=== PATIENT | female | born 1995 | race Hispanic/Latino ===

== ENCOUNTER 2018-06-07 04:16 | Inpatient (IN) | payer OTHER ==
[2018-06-07] MEDS ORDERED: METHYLERGONOVINE 0.2MG/ML AMP IM PRN (04:41)
[2018-06-07] MEDS ORDERED: BUTORPHANOL 1 MG/ML INJ IV PRN (04:41)
[2018-06-07] MEDS ORDERED: MEPERIDINE HCL 25 MG/0.5 ML IV PRN (04:41)
[2018-06-07] MEDS ORDERED: PROMETHAZINE 25 MG/ML VIAL IM PRN (04:41)
[2018-06-07] MEDS ORDERED: CARBOPROST TROME 250 MCG/ML IM PRN (04:41)
[2018-06-07] MEDS ORDERED: Ringers Lactate 1,000 ML IV PRN (04:41)
[2018-06-07] MEDS ORDERED: OXYTOCIN/LR 20 UNIT/1,000 ML BAG IV SCH ×2 (05:00→10:00)
[2018-06-07] MEDS ORDERED: Ringers Lactate 1,000 ML IV SCH (05:00)
[2018-06-07 05:42] LABS: RPR Titer ND
[2018-06-07 05:44] VITALS: BMI 31.8
[2018-06-07 05:45] LABS: Urine Appearance CLOUDY; Urine Bilirubin NEGATIVE (NEG); Urine Blood 1+ (NEG); Urine Color YELLOW; Urine Glucose NEGATIVE (NEG); Urine Protein TRACE (NEG); Urine Specific Gravity >=1.030 (1.005-1.030)
[2018-06-07 05:49] LABS: Absolute Lymphocytes (CBC) 2.1 K/uL (0.7-4.9); Absolute Monocytes 0.7 K/uL (0.1-1.3); Absolute Neutrophil 6.5 K/uL (1.8-8.0); Basophils % 0.5 % (0-1.3); Eosinophils % 1.3 % (0-4.4); Hematocrit 32.9 % (36.0-45.0); Lymphocytes % 22.6 % (15.3-44.8); MCH 28.1 pg (27.0-35.0); MCV 81.9 fL (80-100); MPV 8.7 fL (7.6-11.3); RBC Red Blood Cell Count 4.02 M/uL (3.86-4.86)
[2018-06-07 05:50] LABS: Urine Microscopic Reflex ORDER UMIC
[2018-06-07 05:54] LABS: Urine Bacteria >50 /HPF (<20); Urine Culture Reflex Order REFLEXED
[2018-06-07 05:55] LABS: Urine RBC <5 /HPF (NONE SEEN)
[2018-06-07] MEDS ORDERED: LIDOCAINE 2% INJ, 20 mL 0 ML ONE (07:20)
--- NOTE | 2018-06-07 08:43 | PREOPHP ---
Date of Admission: 06/07/2018 Juany Ladd is a 23-year-old 3, para 1, 39 weeks today. Rh positive. Immune to Rubella. Negative strep screen. Comes in for elective induction. The patient is 4-1/2 cm on admission. Rupture of membranes, clear fluid. Labor talk given. Anticipate delivery later today. She has a history of mild hypotonus . Methergine ordered to be in the room at the time of delivery if needed. ADDY/MOMO Voice ID: [id number] MTDD
[2018-06-07] MEDS ORDERED: DOCUSATE NA/SENNA CONC 1 TAB PO PRN (09:29)
[2018-06-07] MEDS ORDERED: Oxycodone HCl/Acetaminophen 1 TAB TAB PO PRN ×2 (09:29)
[2018-06-07] MEDS ORDERED: BISACODYL 10 MG RECTAL SUPP RECT PRN (09:29)
[2018-06-07] MEDS ORDERED: DIPHENHYDRAMINE 25 MG TAB/CAP PO PRN (09:29)
[2018-06-07] MEDS ORDERED: ACETAMINOPHEN 500 MG TAB PO PRN (09:29)
--- NOTE | 2018-06-07 11:29 | OP ---
Surgeon: Hari Simons MD A 23-year-old 3, para 1, at 39 weeks, 4.5 cm on admission. Rupture of membranes, clear fluid . The patient went into rapid labor pattern, 9 cm. Says she felt the urge to push and then had prec ipitous, but controlled delivery of an estimated 7-pound plus female. Apgars 9 and 9. No episiotomy . No laceration. Nuchal cord x1 loosely. Schultze delivery of the placenta. Less than 200 cc bloo d loss. The patient tolerated all procedures well. No lacerations worthy of suturing. Final Diagnoses: Term intrauterine , vaginal delivery. ADDY/MOMO Voice ID: [id number] Report ID: [id number]
[2018-06-07] MEDS: IBUPROFEN 200 MG TAB PO PRN (19:15)
[2018-06-08] MEDS: IBUPROFEN 200 MG TAB PO PRN (04:28)
--- NOTE | 2018-06-08 08:02 | DS ---
Hospital Course: A 23-year-old, 3, para 1, AB 1, at 39 weeks gestation, 4.5 cm on admission, rupture of membranes. The patient went to a very active rapid labor pattern. Delivered precipitous ly but controlled of an estimated 7-pound plus female; Apgars 9 and 9. No episiotomy. No laceration . Schultze delivery of the placenta was inspected and noted to be intact and normal. Less than 200 cc blood loss. Rh positive, immune to Rubella, negative beta strep screen. is afebrile, ambulating, and voiding. Lochia is normal. She has had her Tdap immunization. Will be dismissed to return to my office in 6 weeks for followup, to report any temperature elevation of 100 degrees or g reater, severe pain, heavy bleeding, or any other type of abnormalities. Dismissed with tramadol, on ly 10 pills; may decide to take Motrin instead; she knows the tramadol goes to the breast milk. The patient is requesting tubal sterilization. She has signed her permit, but because we cannot do it he re she will contact [facility] within the next few days and see them in 1 month and then probabl y have a tubal somewhere between 6 and 8 weeks after her delivery. She was aware of this during the . Final Diagnoses: 1.Term intrauterine , 39 weeks. 2.Vaginal delivery. 3.Sterilization pending at outside institution. ADDY/MOMO Voice ID: [id number] Report ID: [id number]
[2018-06-08 12:43] VITALS: BP 117/73; TEMP 98.2
[2018-06-08 23:24] LABS: RPR (Rapid Plasma Reagin) NON-REACT (NON-REACT)
[2018-06-10 09:28] LABS: HBsAG Nonreactive
== END 2018-06-08 14:15 | disposition home or self-care (01) | DRG 775 ==
LOC: 2ND-WC 04:16
PROVIDERS: ADMIT Specialist; ATTEND Specialist
PROC: 10E0XZZ Delivery of Products of Conception, External Approach (ICD-10-PCS; principal; 2018-06-07)
PROC: 10907ZC Drainage of Amniotic Fluid, Therapeutic from Products of Conception, Via Natural or Artificial Opening (ICD-10-PCS; 2018-06-07)
DX: O69.81X0 Labor and delivery complicated by cord around neck, without compression, not applicable or unspecified (principal); O62.3 Precipitate labor; Z3A.39 39 weeks gestation of pregnancy; Z37.0 Single live birth
CPT/HCPCS: 36415; 81003; 81015; 85025; 86592; 86901; 87086; 87088; 87340; J2210; J2590

== ENCOUNTER 2019-04-11 20:24 | Emergency (ER) | payer OTHER ==
[2019-04-11 20:47] LABS: Urine Blood 3+ (NEG); Urine Glucose NEGATIVE (NEG); Urine Protein 3+ (NEG); Urine Specific Gravity 1.015 (1.005-1.030); Urine pH 7.5 (5.0-7.0)
--- NOTE | 2019-04-11 20:59 | EDPHYS ---
Physician Documentation [facility] Name: Juany Farrar Age: 24 yrs Sex: Female : 1995 Arrival Date: 04/11/2019 Time: 20:29 Bed 20 Private MD: ED Physician Erica Aguilera HPI: 04/11 20:56 This 24 yrs old Female presents to ER via Ambulatory with complaints of ma2 Vaginal Pain. 20:56 Onset: The symptoms/episode began/occurred gradually, 2 day(s) ago. Associated signs ma2 and symptoms: Pertinent negatives: diarrhea, dysuria, hematuria, nausea. Severity of symptoms: At their worst the symptoms were moderate, in the emergency department the symptoms are unchanged. The patient is sexually active. The patient has experienced similar episodes in the past. dysurea. 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 - Social history:: Smoking status: Patient/guardian denies using tobacco, Patient/guardian denies using alcohol, street drugs, The patient lives with family. - Ebola Screening: : Patient negative for fever greater than or equal to 101.5 degrees Fahrenheit, and additional compatible Ebola Virus Disease symptoms Patient denies exposure to infectious person Patient denies travel to an Ebola-affected area in the 21 days before illness onset. - Family history:: not pertinent. ROS: 20:56 Other ma2 20:56 Constitutional: Negative for fever, chills, and weight loss, Cardiovascular: Negative for chest pain, palpitations, and edema, Respiratory: Negative for shortness of breath, cough, wheezing, and pleuritic chest pain, Abdomen/GI: Negative for abdominal pain, nausea, diarrhea, and constipation, MS/Extremity: Negative for injury and deformity. 20:56 : Positive for urinary symptoms, Negative for flank pain, missed period. 20:56 All other systems are negative. Exam: 20:56 Constitutional: This is a well developed, well nourished patient who is awake, alert, ma2 and in no acute distress. Chest/axilla: Normal chest wall appearance and motion. Nontender with no deformity. No lesions are appreciated. Cardiovascular: Regular rate and rhythm with a normal S1 and S2. No gallops, murmurs, or rubs. Normal PMI, no JVD. No pulse deficits. Respiratory: Lungs have equal breath sounds bilaterally, clear to auscultation and percussion. No rales, rhonchi or wheezes noted. No increased work of breathing, no retractions or nasal flaring. Abdomen/GI: Soft, non-tender, with normal bowel sounds. No distension or tympany. No guarding or rebound. No evidence of tenderness throughout. Female : Normal external genitalia. MS/ Extremity: Pulses equal, no cyanosis. Neurovascular intact. Full, normal range of motion. 20:56 : ptn declined pelvic exam. Vital Signs: 20:40 BP 119 / 62; Pulse 92; Resp 18; Temp 98.2(O); Pulse Ox 99% on R/A; Weight 77.11 kg (R); ae4 Pain 8/10; 21:15 BP 115 / 67; Pulse 90; Resp 16 S; Temp 98.2(O); Pulse Ox 99% on R/A; cc3 MDM: 20:30 Patient medically screened. ma2 20:56 Differential diagnosis: urinary tract infection, vaginosis. Data reviewed: vital signs, ma2 nurses notes. Counseling: I had a detailed discussion with the patient and/or guardian regarding: the historical points, exam findings, and any diagnostic results supporting the discharge/admit diagnosis, the presence of at least one elevated blood pressure reading (>120/80) during this emergency department visit, the need for outpatient follow up. Response to treatment: the patient's symptoms have markedly improved after treatment. 04/11 20:41 Order name: Urine Dipstick--Ancillary (enter results) [facility] 04/11 20:41 Order name: Urine --Ancillary (enter results) [facility] 04/11 20:43 Order name: Urine Dipstick-Ancillary [facility] 04/11 20:43 Order name: Urine --Ancillary [facility] 04/11 20:55 Order name: Urine Culture ae4 Administered Medications: 21:20 Drug: Tylenol #3 (300 mg-30 mg) 1 tablet Route: PO; cc3 21:25 Follow up: Response: No adverse reaction; Pain is decreased cc3 Disposition: 04/11/19 20:59 Discharged to Home. Impression: Cystitis. - Condition is Stable. - Discharge Instructions: Urinary Tract Infection, Adult, [id number]. - Prescriptions for Tylenol- Codeine #3 300-30 mg Oral Tablet - take 2 tablet by ORAL route every 6 hours As needed; 6 tablet. Bactrim 400- 80 mg Oral Tablet - take 2 tablets by ORAL route 2 times per day; 20 tablet. - Medication Reconciliation Form, Thank You Letter, Antibiotic Education, Prescription Opioid Use form. - Follow up: Private Physician; When: Tomorrow; Reason: Continuance of care. Signatures: Dispatcher [employer] EDMS Erica Aguilera MD MD ma2 Anamaria Matson cc3 Matthew Peña RN RN ae4 Corrections: (The following items were deleted from the chart) 21:28 20:59 04/11/2019 20:59 Discharged to Home. Impression: Cystitis. Condition is Stable. cc3 Forms are Medication Reconciliation Form, Thank You Letter, Antibiotic Education, Prescription Opioid Use. Follow up: Private Physician; When: Tomorrow; Reason: Continuance of care. ma2
--- NOTE | 2019-04-11 20:59 | ER ---
Nurse's Notes [facility] Name: Juany Farrar Age: 24 yrs Sex: Female : 1995 Arrival Date: 04/11/2019 Time: 20:29 Bed 20 Private MD: Diagnosis: Cystitis Presentation: 04/11 20:43 Presenting complaint: Patient states: Patient states he has had urinary frequency, ae4 urgency, spotting, vulvar pain, and pain with urination since April 06, 2019. Patient started taking "Azos" and applied Monistat to the vaginal area. Transition of care: patient was not received from another setting of care. Onset of symptoms was April 06, 2019. Risk Assessment: Do you want to hurt yourself or someone else? Patient reports no desire to harm self or others. Initial Sepsis Screen: Does the patient meet any 2 criteria? No. Patient's initial sepsis screen is negative. Does the patient have a suspected source of infection? Yes: Dysuria/Frequency/Urgency/UTI. Care prior to arrival: Patient started staking OTC "Azos" and applied Monistat cream to the vaginal area. 20:43 Acuity: VALENTINO 3 ae4 20:43 Method Of Arrival: Ambulatory ae4 Triage Assessment: 20:48 General: Appears uncomfortable, Behavior is calm, cooperative, appropriate for age. ae4 General: Reports chills for fatigue for 0-12 hours. Pain: Complains of pain in meatus, vaginal opening, right labia minora, left labia minora and upper labia Pain currently is 8 out of 10 on a pain scale. EENT: No signs and/or symptoms were reported regarding the EENT system. Neuro: Level of Consciousness is awake, alert, obeys commands, Oriented to person, place, time, situation, Appropriate for age. Cardiovascular: Patient's skin is warm and dry. Respiratory: Airway is patent Respiratory effort is even, unlabored, Respiratory pattern is regular, symmetrical. GI: Reports nausea. : Reports burning with urination, urinary frequency. Derm: Skin is normal. Derm: Reports. Musculoskeletal: Reports Fatigue. REPEAT CHIEF: 20:55 LMP 03/20/2019 ae4 Historical: - Allergies: 20:48 No Known Allergies; ae4 - Home Meds: 20:48 Nexplanon implanted control [Active]; ae4 - PMHx: 20:56 None; ae4 - PSHx: 20:48 None; ae4 - Immunization history:: Adult Immunizations up to date. - Social history:: Smoking status: Patient/guardian denies using tobacco, Patient/guardian denies using alcohol, street drugs, The patient lives with family. - Ebola Screening: : Patient negative for fever greater than or equal to 101.5 degrees Fahrenheit, and additional compatible Ebola Virus Disease symptoms Patient denies exposure to infectious person Patient denies travel to an Ebola-affected area in the 21 days before illness onset. - Family history:: not pertinent. Screenin:55 Abuse screen: Denies threats or abuse. Nutritional screening: No deficits noted. ae4 Tuberculosis screening: No symptoms or risk factors identified. Fall Risk None identified. Assessment: 21:25 Reassessment: Patient appears in no apparent distress at this time. Patient and/or cc3 family updated on plan of care and expected duration. Pain level reassessed. Patient is alert, oriented x 3, equal unlabored respirations, skin warm/dry/pink. Dr. Aguilera discharged the patient home with prescription given. No IV cannula in situ. Patient left ER vitally stable and ambulatory with her mother. Patient denies pain at this time. Patient states feeling better. Patient states symptoms have improved. Vital Signs: 20:40 BP 119 / 62; Pulse 92; Resp 18; Temp 98.2(O); Pulse Ox 99% on R/A; Weight 77.11 kg (R); ae4 Pain 8/10; 21:15 BP 115 / 67; Pulse 90; Resp 16 S; Temp 98.2(O); Pulse Ox 99% on R/A; cc3 ED Course: 20:29 Patient arrived in ED. ss4 20:30 Matthew Peña, JENNA is Primary Nurse. ae4 20:30 Erica Aguilera MD is Attending Physician. ma2 20:46 Triage completed. ae4 20:52 Arm band placed on left wrist. ae4 20:53 Placed in gown. Bed in low position. Call light in reach. Side rails up X 1. Pulse ox ae4 on. NIBP on. Warm blanket given. 21:19 Anamaria Matson is Primary Nurse. cc3 21:25 No provider procedures requiring assistance completed. Patient did not have IV access cc3 during this emergency room visit. Administered Medications: 21:20 Drug: Tylenol #3 (300 mg-30 mg) 1 tablet Route: PO; cc3 21:25 Follow up: Response: No adverse reaction; Pain is decreased cc3 Outcome: 20:59 Discharge ordered by . anastasiya 21:25 Discharged to home ambulatory, with family. cc3 21:25 Condition: stable 21:25 Discharge instructions given to patient, Instructed on discharge instructions, follow up and referral plans. medication usage, Demonstrated understanding of instructions, follow-up care, medications, Prescriptions given X 2. 21:28 Patient left the ED. cc3 Addendum: 04/14/2019 07:54 Addendum: Culture Results: Positive urine culture. No further action required. Bacteria i w sensitive to prescribed antibiotic. Signatures: Yelena Wall, RN RN iw Erica Aguilera MD MD ma2 Anamaria Matson cc3 Valerie Greer 4 Matthew Peña RN RN ae4
[2019-04-11] MEDS ORDERED: CODEINE 30MG/APAP 300MG TAB ONE (21:38)
[2019-04-11 21:42] VITALS: BP 119/62; TEMP 98.2; O2SAT 99
== END 2019-04-11 21:28 | disposition home or self-care (01) ==
LOC: ER 20:24
DX: N30.90 Cystitis, unspecified without hematuria (principal)
CPT/HCPCS: 81003; 81025; 87077; 87086; 87088; 87186; 99283

== ENCOUNTER 2019-08-11 20:33 | Emergency (ER) | payer OTHER ==
--- NOTE | 2019-08-11 22:36 | EDPHYS ---
Physician Documentation [facility] Name: Juany Farrar Age: 24 yrs Sex: Female : 1995 Arrival Date: 08/11/2019 Time: 20:36 Bed 19 Private MD: ED Physician John Mccollum HPI: 08/12 00:05 This 24 yrs old Female presents to ER via Ambulatory with complaints of Ankle snw Injury, Ankle Swelling. 00:05 The patient presents with an injury, pain, that is acute, swelling, tenderness. The snw complaints affect the right ankle. Onset: The symptoms/episode began/occurred suddenly, 1 week(s) ago, and became persistent. Context: The problem was sustained outdoors, resulted from the patient falling, The mechanism of injury is unknown. The patient can partially bear weight on the affected extremity. Associated signs and symptoms: Pertinent positives: swelling, of the right ankle. Severity of symptoms: At their worst the symptoms were moderate. It is unknown whether or not the patient has had similar symptoms in the past. The patient has not recently seen a physician. 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 - Social history:: Smoking status: Patient/guardian denies using tobacco. - Ebola Screening: : Patient denies travel to an Ebola-affected area in the 21 days before illness onset. ROS: 08/12 00:04 Constitutional: Negative for fever, chills, and weight loss, Eyes: Negative for injury, snw pain, redness, and discharge, ENT: Negative for injury, pain, and discharge, Neck: Negative for injury, pain, and swelling, Cardiovascular: Negative for chest pain, palpitations, and edema, Respiratory: Negative for shortness of breath, cough, wheezing, and pleuritic chest pain, Abdomen/GI: Negative for abdominal pain, nausea, vomiting, diarrhea, and constipation, Back: Negative for injury and pain, : Negative for injury, bleeding, discharge, and swelling, Skin: Negative for injury, rash, and discoloration, Neuro: Negative for headache, weakness, numbness, tingling, and seizure, Psych: Negative for depression, anxiety, suicide ideation, homicidal ideation, and hallucinations. MS/extremity: Positive for injury or acute deformity, contusion, decreased range of motion, pain, swelling, tenderness, of the right ankle. Exam: 00:02 Constitutional: This is a well developed, well nourished patient who is awake, alert, snw and in no acute distress. Head/Face: Normocephalic, atraumatic. Eyes: Pupils equal round and reactive to light, extra-ocular motions intact. Lids and lashes normal. Conjunctiva and sclera are non-icteric and not injected. Cornea within normal limits. Periorbital areas with no swelling, redness, or edema. ENT: Nares patent. No nasal discharge, no septal abnormalities noted. Tympanic membranes are normal and external auditory canals are clear. Oropharynx with no redness, swelling, or masses, exudates, or evidence of obstruction, uvula midline. Mucous membranes moist. Neck: Trachea midline, no thyromegaly or masses palpated, and no cervical lymphadenopathy. Supple, full range of motion without nuchal rigidity, or vertebral point tenderness. No Meningismus. Chest/axilla: Normal chest wall appearance and motion. Nontender with no deformity. No lesions are appreciated. Cardiovascular: Regular rate and rhythm with a normal S1 and S2. No gallops, murmurs, or rubs. Normal PMI, no JVD. No pulse deficits. Respiratory: Lungs have equal breath sounds bilaterally, clear to auscultation and percussion. No rales, rhonchi or wheezes noted. No increased work of breathing, no retractions or nasal flaring. Abdomen/GI: Soft, non-tender, with normal bowel sounds. No distension or tympany. No guarding or rebound. No evidence of tenderness throughout. Back: No spinal tenderness. No costovertebral tenderness. Full range of motion. Skin: Warm, dry with normal turgor. Normal color with no rashes, no lesions, and no evidence of cellulitis. Neuro: Awake and alert, GCS 15, oriented to person, place, time, and situation. Cranial nerves II-XII grossly intact. Motor strength 5/5 in all extremities. Sensory grossly intact. Cerebellar exam normal. Normal gait. Psych: Awake, alert, with orientation to person, place and time. Behavior, mood, and affect are within normal limits. 00:02 Musculoskeletal/extremity: Extremities: grossly normal except: noted in the right ankle: pain, swelling, tenderness, ROM: limited active range of motion due to pain, in the right ankle, Circulation is intact in all extremities. Sensation intact. Vital Signs: 08/11 20:49 BP 118 / 78; Pulse 80; Resp 16; Temp 97.6; Pulse Ox 100% on R/A; Weight 79.83 kg (R); aj1 Height 5 ft. 6 in. (167.64 cm) (R); Pain 7/10; 22:50 BP 110 / 78; Pulse 80; Resp 18; Pulse Ox 100% ; ea 20:49 Body Mass Index 28.41 (79.83 kg, 167.64 cm) MDM: 22:27 Patient medically screened. snw 08/12 00:04 Data reviewed: vital signs, nurses notes. Data interpreted: Pulse oximetry: on room air snw is 100 %. Interpretation: normal. Counseling: I had a detailed discussion with the patient and/or guardian regarding: the historical points, exam findings, and any diagnostic results supporting the discharge/admit diagnosis, radiology results, the need for outpatient follow up, to return to the emergency department if symptoms worsen or persist or if there are any questions or concerns that arise at home. Special discussion: Based on the history and exam findings, there is no indication for further emergent testing or inpatient evaluation. I discussed with the patient/guardian the need to see the orthopedic surgeon for further evaluation of the symptoms. 08/11 20:51 Order name: Ankle Left 3 View XRAY aj1 08/11 22:29 Order name: Walking boot; Complete Time: 22:45 snw Administered Medications: 08/11 22:45 Not Given (Other Intervention Used): [place] 5 mg-325 mg 1 tabs PO once; RASS on ADMIN: ea Combtv4, Very Agttd3, Agttd2, Rstlss1, AlertClm0, Drwsy-1, Lt Sdtn-2, Mod Sdtn-3, Dp Sdtn-4, UnArsble-5 22:45 Drug: Motrin 400 mg Route: PO; ea 22:58 Follow up: Response: No adverse reaction ea 22:57 Drug: TORadol 30 mg Route: IM; Site: right deltoid; ea 23:05 Follow up: Response: Medication administered at discharge. ea Disposition: 08/12 12:45 Co-signature as Attending Physician, John Mccollum MD I agree with the assessment and carol plan of care. Disposition: 08/11/19 22:35 Discharged to Home. Impression: Sprain of ankle. - Condition is Stable. - Discharge Instructions: Elastic Bandage and RICE, Ankle Sprain, Ankle Pain, Cryotherapy, Heat Therapy, Walking Boot, Heartbeats (How the Heart Works). - Prescriptions for Mobic 7.5 mg Oral Tablet - take 1 tablet by ORAL route once daily take with food; 20 tablet. orphenadrine citrate 100 mg Oral Tablet Sustained Release - take 1 tablet by ORAL route 2 times per day As needed; 20 tablet. - Work release form, Medication Reconciliation Form, Thank You Letter, Antibiotic Education, Prescription Opioid Use form. - Follow up: Jaun Sanabria MD; When: 2 - 3 days; Reason: Recheck today's complaints, Continuance of care, Re-evaluation by your physician. Signatures: Dispatcher [employer] Hyun Garcia RN RN aj1 John Mccollum MD MD cha Therrien, Shelly, DIRECTOR E LEARNING-C DIRECTOR E LEARNING-Csnw Vickie Hayes RN RN ea Corrections: (The following items were deleted from the chart) 08/11 23:04 22:35 08/11/2019 22:35 Discharged to Home. Impression: Sprain of ankle. Condition is ea Stable. Forms are Medication Reconciliation Form, Thank You Letter, Antibiotic Education, Prescription Opioid Use. Follow up: Dr. Jaun Sanabria; When: 2 - 3 days; Reason: Recheck today's complaints, Continuance of care, Re-evaluation by your physician. snw
--- NOTE | 2019-08-11 22:36 | ER ---
Nurse's Notes [facility] Name: Juany Farrar Age: 24 yrs Sex: Female : 1995 Arrival Date: 08/11/2019 Time: 20:36 Bed 19 Private MD: Diagnosis: Sprain of ankle Presentation: 08/11 20:47 Presenting complaint: Patient states: "last Thursday I fell and I hurt my ankle, the aj1 pain was so bad it was worse than when I had my kids, its been a week and it still hurts and the swelling hasn't gone down." Reports pain to the right ankle. Transition of care: patient was not received from another setting of care. Onset of symptoms was July 2019. Risk Assessment: Do you want to hurt yourself or someone else? Patient reports no desire to harm self or others. Initial Sepsis Screen: Does the patient meet any 2 criteria? No. Patient's initial sepsis screen is negative. Does the patient have a suspected source of infection? No. Patient's initial sepsis screen is negative. Care prior to arrival: None. 20:47 Method Of Arrival: Ambulatory aj1 20:47 Acuity: VALENTINO 4 aj1 Triage Assessment: 20:49 General: Appears in no apparent distress. uncomfortable, Behavior is calm, cooperative, aj1 appropriate for age. Pain: Complains of pain in right ankle Pain currently is 7 out of 10 on a pain scale. Neuro: Level of Consciousness is awake, alert, obeys commands. Cardiovascular: Patient's skin is warm and dry. Respiratory: Airway is patent Respiratory effort is even, unlabored, Respiratory pattern is regular, symmetrical. Musculoskeletal: Range of motion: limited in right ankle. 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 - Social history:: Smoking status: Patient/guardian denies using tobacco. - Ebola Screening: : Patient denies travel to an Ebola-affected area in the 21 days before illness onset. Screenin:20 Abuse screen: Denies threats or abuse. Nutritional screening: No deficits noted. ea Tuberculosis screening: No symptoms or risk factors identified. Fall Risk None identified. Assessment: 22:19 General: Appears uncomfortable, Behavior is calm, cooperative, appropriate for age. ea Pain: Complains of pain in right ankle. Neuro: Level of Consciousness is awake, alert, obeys commands, Oriented to person, place, time, situation. Cardiovascular: Patient's skin is warm and dry. Respiratory: Airway is patent Respiratory effort is even, unlabored, Respiratory pattern is regular, symmetrical. Derm: Skin is pink, warm \\T\\ dry. Musculoskeletal: Swelling present in right ankle. 22:58 Reassessment: Patient and/or family updated on plan of care and expected duration. Pain ea level reassessed. Patient is alert, oriented x 3, equal unlabored respirations, skin warm/dry/pink. Discharge instructions given to patient, verbalized the understanding of instruction. Pt left ED ambulatory tolerating well. Vital Signs: 20:49 BP 118 / 78; Pulse 80; Resp 16; Temp 97.6; Pulse Ox 100% on R/A; Weight 79.83 kg (R); aj1 Height 5 ft. 6 in. (167.64 cm) (R); Pain 7/10; 22:50 BP 110 / 78; Pulse 80; Resp 18; Pulse Ox 100% ; ea 20:49 Body Mass Index 28.41 (79.83 kg, 167.64 cm) aj1 ED Course: 20:36 Patient arrived in ED. cl3 20:38 [facility] snw 20:38 John Mccollum MD is Attending Physician. snw 20:49 Triage completed. aj1 20:49 Arm band placed on Patient placed in waiting room, Patient notified of wait time. aj1 21:30 Ankle Left 3 View XRAY In Process Unspecified. EDMS 22:19 Vickie Hayes, JENNA is Primary Nurse. ea 22:21 Patient has correct armband on for positive identification. Bed in low position. Call ea light in reach. Side rails up X 1. 22:33 Jaun Sanabria MD is Referral Physician. snw 22:46 No provider procedures requiring assistance completed. Patient did not have IV access ea during this emergency room visit. ortho boot to right foot. Administered Medications: 22:45 Not Given (Other Intervention Used): Ruth 5 mg-325 mg 1 tabs PO once; RASS on ADMIN: ea Combtv4, Very Agttd3, Agttd2, Rstlss1, AlertClm0, Drwsy-1, Lt Sdtn-2, Mod Sdtn-3, Dp Sdtn-4, UnArsble-5 22:45 Drug: Motrin 400 mg Route: PO; ea 22:58 Follow up: Response: No adverse reaction ea 22:57 Drug: TORadol 30 mg Route: IM; Site: right deltoid; ea 23:05 Follow up: Response: Medication administered at discharge. ea Outcome: 22:35 Discharge ordered by . michele 22:58 Discharged to home ambulatory. ea 22:58 Condition: stable 22:58 Discharge instructions given to patient, Instructed on discharge instructions, follow up and referral plans. medication usage, Demonstrated understanding of instructions, follow-up care, medications, Prescriptions given X 2. 23:04 Patient left the ED. ea Signatures: Dispatcher [employer] Hyun Garcia, RN RN aj1 Donna Person, DYE WEIGHER-C DYE WEIGHER-Csnw Vickie Hayes, RN Eveline Sanchez ea cl3
[2019-08-11] MEDS ORDERED: HYDROCODONE/APAP 5/325 MG TAB ONE (22:37)
[2019-08-11] MEDS ORDERED: IBUPROFEN 400 MG TAB ONE (22:38)
[2019-08-11] MEDS ORDERED: KETOROLAC 30 MG/ML INJ ONE (22:56)
[2019-08-11 23:52] VITALS: BP 118/78; TEMP 97.6; O2SAT 100
--- NOTE | 2019-08-12 07:45 | RAD REPORT ---
EXAM DESCRIPTION: RAD - Ankle Left 3 View -08/11/2019 9:29 pm CLINICAL HISTORY: Left ankle pain status post injury FINDINGS: No fracture or dislocation is seen. Marked lateral soft tissue swelling
== END 2019-08-11 23:04 | disposition home or self-care (01) ==
LOC: ER 20:33
DX: S93.401A Sprain of unspecified ligament of right ankle, initial encounter (principal); W19.XXXA Unspecified fall, initial encounter; Y93.9 Activity, unspecified
CPT/HCPCS: 96372; 99284

== ENCOUNTER 2021-08-04 11:17 | Inpatient (IN) | payer OTHER, SELFPAY ==
--- NOTE | 2021-08-04 12:04 | ER ---
Nurse's Notes [facility] Name: Juany Farrar Age: 26 yrs Sex: Female : 1995 Arrival Date: 08/04/2021 Time: 11:20 Bed 24 Private MD: Diagnosis: Coronavirus infection, unspecified;Pneumonia due to SARS-associated coronavirus;Hypoxemia;Fever, unspecified Presentation: 08/04 11:29 Chief complaint: Patient states: Covid-19 positive, c/o SOB. Coronavirus screen: Client aa5 presents with at least one sign or symptom that may indicate coronavirus-19. Client reports previous positive COVID test result. Ebola Screen: Patient negative for fever greater than or equal to 101.5 degrees Fahrenheit, and additional compatible Ebola Virus Disease symptoms. Initial Sepsis Screen: Does the patient meet any 2 criteria? HR > 90 bpm. Does the patient have a suspected source of infection? Yes:. Risk Assessment: Do you want to hurt yourself or someone else? Patient reports no desire to harm self or others. Onset of symptoms was July 29, 2021. 11:29 Method Of Arrival: Ambulatory aa5 11:29 Acuity: VALENTINO 3 aa5 Triage Assessment: 14:06 General: Appears uncomfortable. General: Behavior is calm, cooperative. Respiratory: tc5 Reports shortness of breath cough that is productive, pt states she has small amt sputum, white-yellowish sputum. Onset: The symptoms/episode began/occurred gradually, the patient has moderate shortness of breath. 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 - Social history:: Smoking status: Patient denies any tobacco usage or history of. Screenin:03 Abuse screen: Denies threats or abuse. Nutritional screening: No deficits noted. tc5 Tuberculosis screening: No symptoms or risk factors identified. Fall Risk None identified. Assessment: 12:17 Pain: Quality of pain is described as. tc5 14:04 Cardiovascular: Rhythm is sinus tachycardia. Respiratory: Airway. Respiratory: tc5 Respiratory: Respiratory effort is even, labored, Breath sounds are clear bilaterally. Vital Signs: 11:29 BP 123 / 74; Pulse 136; Resp 20 S; Temp 100.8(O); Pulse Ox 93% on R/A; Weight 81.65 kg aa5 (R); Height 5 ft. 6 in. (167.64 cm) (R); 14:08 BP 101 / 65; Pulse 125; Resp 28; Temp 99.3; Pulse Ox 98% ; Weight 81.65 kg; Height 5 tc5 ft. 6 in. (167.64 cm) (R); 14:08 Body Mass Index 29.05 (81.65 kg, 167.64 cm) tc5 ED Course: 11:20 Patient arrived in ED. am2 11:25 John Mccollum MD is Attending Physician. carol 11:29 Arm band placed on. aa5 11:30 Triage completed. aa5 12:00 Micki Aaron MD is Hospitalizing Provider. carol 12:24 Chest Single View XRAY In Process Unspecified. EDMS 12:45 CBC with Diff Sent. tc5 13:01 CT Chest For PE Angio In Process Unspecified. EDMS 14:09 Inserted saline lock: 20 gauge in right antecubital area, using aseptic technique. tc5 14:10 No provider procedures requiring assistance completed. tc5 14:12 Patient has correct armband on for positive identification. tc5 Administered Medications: 12:43 Drug: Montelukast 10 mg Route: PO; tc5 12:44 Drug: Zithromax (azithromycin) 500 mg Route: IVPB; Infused Over: 1 hrs; Site: right tc5 antecubital; 12:44 Drug: Pepcid (famotidine) 40 mg Route: PO; tc5 12:44 Drug: SOLU-Medrol (methylPrednisoLONE) 125 mg Route: IVP; Site: right antecubital; tc5 12:44 Drug: predniSONE 60 mg Route: PO; tc5 12:45 Drug: NS 0.9% 500 ml Route: IV; Rate: bolus; Site: right antecubital; tc5 12:45 Drug: Tylenol 1000 mg Route: PO; tc5 13:26 Drug: Rocephin (cefTRIAXone) 1 grams Route: IV; Rate: per protocol; Site: right tc5 antecubital; 13:26 Drug: Aspirin Chewable Tablet 324 mg Route: PO; tc5 14:03 Not Given (dr. rodrigues): NS 0.9% 1000 ml IV at 125 ml/hr continuous tc5 Outcome: 12:03 Decision to Hospitalize by Provider. caorl 14:10 Admitted to Tele tc5 14:10 Condition: stable tc5 14:10 Instructed on the need for admit, Demonstrated understanding of 20:33 Patient left the ED. wg Signatures: Dispatcher [employer] EDJohn Foreman MD MD cha Calderon, Audri, RN RN aa5 Khadijah Riddle Liam, Viji Mcconnell RN RN tc5
--- NOTE | 2021-08-04 12:04 | EDPHYS ---
Physician Documentation [facility] Name: Juany Farrar Age: 26 yrs Sex: Female : 1995 Arrival Date: 08/04/2021 Time: 11:20 Bed 24 Private MD: ED Physician John Mccollum HPI: 08/04 11:53 This 26 yrs old Female presents to ER via Ambulatory with complaints of carol Breathing Difficulty, covid+. 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 - Social history:: Smoking status: Patient denies any tobacco usage or history of. ROS: 11:55 Constitutional: Negative for fever, chills, and weight loss, Eyes: Negative for injury, carol pain, redness, and discharge, ENT: Negative for injury, pain, and discharge, Neck: Negative for injury, pain, and swelling, Abdomen/GI: Negative for abdominal pain, nausea, vomiting, diarrhea, and constipation, Back: Negative for injury and pain, : Negative for injury, bleeding, discharge, and swelling, MS/Extremity: Negative for injury and deformity, Skin: Negative for injury, rash, and discoloration, Neuro: Negative for headache, weakness, numbness, tingling, and seizure, Psych: Negative for depression, anxiety, suicide ideation, homicidal ideation, and hallucinations, Allergy/Immunology: Negative for hives, rash, and allergies, Endocrine: Negative for neck swelling, polydipsia, polyuria, polyphagia, and marked weight changes. 11:55 Cardiovascular: Positive for chest pain, palpitations. 11:55 Respiratory: Positive for cough, with no reported sputum, shortness of breath, at rest. Exam: 11:55 Constitutional: This is a well developed, well nourished patient who is awake, alert, carol and in no acute distress. Head/Face: Normocephalic, atraumatic. Eyes: Pupils equal round and reactive to light, extra-ocular motions intact. Lids and lashes normal. Conjunctiva and sclera are non-icteric and not injected. Cornea within normal limits. Periorbital areas with no swelling, redness, or edema. ENT: Nares patent. No nasal discharge, no septal abnormalities noted. Tympanic membranes are normal and external auditory canals are clear. Oropharynx with no redness, swelling, or masses, exudates, or evidence of obstruction, uvula midline. Mucous membranes moist. Neck: Trachea midline, no thyromegaly or masses palpated, and no cervical lymphadenopathy. Supple, full range of motion without nuchal rigidity, or vertebral point tenderness. No Meningismus. Chest/axilla: Normal chest wall appearance and motion. Nontender with no deformity. No lesions are appreciated. Abdomen/GI: Soft, non-tender, with normal bowel sounds. No distension or tympany. No guarding or rebound. No evidence of tenderness throughout. Back: No spinal tenderness. No costovertebral tenderness. Full range of motion. Skin: Warm, dry with normal turgor. Normal color with no rashes, no lesions, and no evidence of cellulitis. MS/ Extremity: Pulses equal, no cyanosis. Neurovascular intact. Full, normal range of motion. Neuro: Awake and alert, GCS 15, oriented to person, place, time, and situation. Cranial nerves II-XII grossly intact. Motor strength 5/5 in all extremities. Sensory grossly intact. Cerebellar exam normal. Normal gait. 11:55 Cardiovascular: Rate: tachycardic, Rhythm: regular, Pulses: Pulses are 4+ in bilateral radial, brachial, femoral, popliteal, posterior tibial and and dorsalis pedis arteries.. Heart sounds: normal, Edema: is not appreciated, JVD: is not appreciated. 11:55 ECG was reviewed by the Attending Physician. Vital Signs: 11:29 BP 123 / 74; Pulse 136; Resp 20 S; Temp 100.8(O); Pulse Ox 93% on R/A; Weight 81.65 kg aa5 (R); Height 5 ft. 6 in. (167.64 cm) (R); 14:08 BP 101 / 65; Pulse 125; Resp 28; Temp 99.3; Pulse Ox 98% ; Weight 81.65 kg; Height 5 tc5 ft. 6 in. (167.64 cm) (R); 14:08 Body Mass Index 29.05 (81.65 kg, 167.64 cm) tc5 MDM: 11:25 Patient medically screened. carol 11:58 Differential diagnosis: Anemia CHF exacerbation, Chronic Obstructive Pulmonary Disease carol pneumonia, pulmonary edema, Pulmonary Embolism reactive airway disease, Unstable Angina. Antibiotic administration: Rocephin and Zithromax given. The patient's Wells Deep Vein Thrombosis Score was calculated as follows: Total Score: 0-2 Pts- Low Risk. The patient's pulmonary embolism risk score was calculated as follows: Total Score: 0-2 points. This patient was found to be at low risk for a pulmonary embolism by using the Well's assessment criteria. Immunization status:. Data reviewed: vital signs, nurses notes, lab test result(s), EKG, radiologic studies, plain films. Data interpreted: forensic pathologist: rate is 136 beats/min, rhythm is regular, Pulse oximetry: is 93 %. Interpretation: normal. Test interpretation: by ED physician or midlevel provider: ECG, plain radiologic studies. Counseling: I had a detailed discussion with the patient and/or guardian regarding: the historical points, exam findings, and any diagnostic results supporting the discharge/admit diagnosis, lab results, radiology results, the need for further work-up and treatment in the hospital. 08/04 11:32 Order name: CBC with Diff [facility] 08/04 11:32 Order name: Comprehensive Metabolic Panel; Complete Time: 12:42 [facility] 08/04 11:32 Order name: D-Dimer; Complete Time: 12:42 [facility] 08/04 11:32 Order name: Troponin (emerg Dept Use Only); Complete Time: 12:42 [facility] 08/04 11:32 Order name: CRP; Complete Time: 12:42 [facility] 08/04 11:32 Order name: Ferritin; Complete Time: 12:42 [facility] 08/04 11:32 Order name: CBC with Automated Diff; Complete Time: 12:42 [facility] 08/04 12:08 Order name: Urine Dipstick-Ancillary; Complete Time: 12:15 [facility] 08/04 12:11 Order name: Urine --Ancillary (enter results); Complete Time: 12:42 08/04 14:49 Order name: Basic Metabolic Panel [facility] 08/04 14:49 Order name: Basic Metabolic Panel [facility] 08/04 14:49 Order name: C-Reactive Protein [facility] 08/04 14:49 Order name: C-Reactive Protein [facility] 08/04 14:49 Order name: NT PRO-BNP [facility] 08/04 11:32 Order name: Chest Single View XRAY; Complete Time: 13:47 carol 08/04 14:49 Order name: T4 Free [facility] 08/04 14:49 Order name: Ferritin [facility] 08/04 14:49 Order name: Ferritin [facility] 08/04 14:49 Order name: Lipid Profile [facility] 08/04 14:49 Order name: Lipid Profile [facility] 08/04 14:49 Order name: Thyroid Stimulating Hormone [facility] 08/04 14:49 Order name: CBC with Automated Diff [facility] 08/04 14:49 Order name: CBC with Automated Diff [facility] 08/04 14:49 Order name: D-Dimer [facility] 08/04 14:49 Order name: D-Dimer [facility] 08/04 14:49 Order name: Troponin I [facility] 08/04 14:49 Order name: Troponin I [facility] 08/04 14:49 Order name: Troponin I [facility] 08/04 14:49 Order name: Troponin I [facility] 08/04 14:50 Order name: Urinalysis [facility] 08/04 11:32 Order name: Urine Dipstick-Ancillary (obtain specimen); Complete Time: 12:45 carol 08/04 11:32 Order name: Urine Test (obtain specimen); Complete Time: 12:45 [facility] 08/04 11:32 Order name: EKG; Complete Time: 11:33 [facility] 08/04 11:32 Order name: EKG - Nurse/Tech; Complete Time: 12:43 [facility] 08/04 12:33 Order name: CT Chest For PE Angio; Complete Time: 13:47 eb 08/04 14:01 Order name: Diet Regular; Complete Time: 14:02 eb EC:55 Rate is 130 beats/min. Rhythm is regular. QRS [place] is Normal. ND interval is normal. [facility] QRS interval is normal. QT interval is normal. No Q waves. T waves are Normal. No ST changes noted. Clinical impression: Sinus tachycardia. Interpreted by me. Reviewed by me. Administered Medications: 12:43 Drug: Montelukast 10 mg Route: PO; tc5 12:44 Drug: Zithromax (azithromycin) 500 mg Route: IVPB; Infused Over: 1 hrs; Site: right tc5 antecubital; 12:44 Drug: Pepcid (famotidine) 40 mg Route: PO; tc5 12:44 Drug: SOLU-Medrol (methylPrednisoLONE) 125 mg Route: IVP; Site: right antecubital; tc5 12:44 Drug: predniSONE 60 mg Route: PO; tc5 12:45 Drug: NS 0.9% 500 ml Route: IV; Rate: bolus; Site: right antecubital; tc5 12:45 Drug: Tylenol 1000 mg Route: PO; tc5 13:26 Drug: Rocephin (cefTRIAXone) 1 grams Route: IV; Rate: per protocol; Site: right tc5 antecubital; 13:26 Drug: Aspirin Chewable Tablet 324 mg Route: PO; tc5 14:03 Not Given (dr. rodrigues): NS 0.9% 1000 ml IV at 125 ml/hr continuous tc5 Disposition Summary: 08/04/21 12:03 Hospitalization Ordered Hospitalization Status: Inpatient Admission carol Provider: Micki Aaron cha Location: Telemetry/MedSurg (Inpatient) carol Condition: Fair carol Problem: new carol Symptoms: have improved carol Bed/Room Type: Standard [facility] Room Assignment: 405(08/04/21 18:45) tt3 Diagnosis - Coronavirus infection, unspecified carol - Pneumonia due to SARS-associated coronavirus carol - Hypoxemia carol - Fever, unspecified carol Forms: - Medication Reconciliation Form carol - SBAR form carol Signatures: Dispatcher [employer] EDJohn Foreman MD MD cha Calderon, Audri RN RN aa5 Hussein Allan tt3 Viji Abraham RN RN tc5 Corrections: (The following items were deleted from the chart) 18:45 12:03 carol tt3
[2021-08-04 12:08] LABS: Urine Blood 3+ (Negative); Urine Glucose Negative (Negative); Urine Protein 2+ (Negative); Urine Specific Gravity 1.025 (1.005-1.030)
[2021-08-04] MEDS ORDERED: ACETAMINOPHEN 500 MG TAB ONE (12:14)
[2021-08-04] MEDS ORDERED: predniSONE 20 MG TAB ONE (12:14)
[2021-08-04] MEDS ORDERED: METHYLPREDNISOLONE 125 MG INJ ONE (12:14)
[2021-08-04] MEDS ORDERED: NA CHLORIDE 0.9% 1,000 ML ONE ×2 (12:15)
[2021-08-04] MEDS ORDERED: AZITHROMYCIN 500 MG INJ IVPB ONE (12:15)
[2021-08-04] MEDS ORDERED: FAMOTIDINE 20 MG TAB ONE (12:15)
[2021-08-04 12:25] LABS: Urine Specific Gravity/Preg 1.025 (1.005-1.030)
[2021-08-04 12:31] LABS: Absolute Lymphocytes (CBC) 1.1 K/uL (0.7-4.9); Basophils % 0.3 % (0-1.3); Hematocrit 41.5 % (36.0-45.0); Lymphocytes % 20.8 % (15.3-44.8); MPV 8.8 fL (7.6-11.3); RBC Red Blood Cell Count 4.78 M/uL (3.86-4.86)
[2021-08-04 12:39] LABS: ALT/SGPT 34 U/L (12-78); AST/SGOT 32 U/L (15-37); Albumin 3.6 g/dL (3.4-5.0); Alkaline Phosphatase 69 U/L (45-117); BUN Blood Urea Nitrogen 9 mg/dL (7-18); Bicarbonate 25 mmol/L (21-32); Bilirubin Total 0.4 mg/dL (0.2-1.0); Ferritin 206.5 ng/mL (8-388); Glucose Level 94 mg/dL (74-106); Potassium 4.1 mmol/L (3.5-5.1); Protein, Total 8.3 g/dL (6.4-8.2); Sodium Level 140 mmol/L (136-145); Troponin (Emerg Dept Use Only) < 0.02 ng/mL (0.0-0.045)
[2021-08-04] MEDS ORDERED: MONTELUKAST 10 MG TAB PO ONE (13:00)
[2021-08-04] MEDS ORDERED: ASPIRIN 81 MG CHEWABLE TABLET ONE (13:11)
[2021-08-04] MEDS ORDERED: CEFTRIAXONE/SWI 1gm 1 GM/10 ML SYR ONE (13:12)
--- NOTE | 2021-08-04 13:12 | RAD REPORT ---
EXAM DESCRIPTION: CT - Chest For Pe Angio - 08/04/2021 1:01 pm CLINICAL HISTORY: sob COMPARISON: August 04, 2021 chest x-ray TECHNIQUE: Dynamically enhanced axial 3 mm thick images of the chest were obtained during administra tion of <100> mL Isovue 370 IV contrast. Coronal and oblique reconstruction images were generated and reviewed. Exam utilizes a protocol for optimal evaluation of pulmonary arterial tree. Maximum intensity projections 3D imaging was utilized All CT scans are performed using dose optimization technique as appropriate and may include automated exposure control or mA/KV adjustment according to patient size. FINDINGS: A pulmonary embolus is not seen. A thoracic aortic aneurysm is not noted. A pleural effusion is not seen. A pericardial effusion is not seen. Mild right and [id number] left ground-glass opacities within the lungs IMPRESSION: Negative for a pulmonary embolism. Mild to moderate ground-glass opacities within the lungs probably Covid pneumonia
--- NOTE | 2021-08-04 13:13 | RAD REPORT ---
EXAM DESCRIPTION: Jamarcus Single View08/04/2021 12:24 pm CLINICAL HISTORY: Congestion COMPARISON: none FINDINGS: Mild right and [id number] left pulmonary opacities. The heart is normal size IMPRESSION: Mild right and [id number] left pulmonary opacities probably pneumonia
[2021-08-04] MEDS ORDERED: ACETAMINOPHEN 500 MG TAB PO PRN (14:44)
[2021-08-04] MEDS ORDERED: ONDANSETRON 4 MG/2 ML VIAL IV PRN (14:44)
[2021-08-04] MEDS ORDERED: HYDROCODONE/APAP 5/325 MG TAB PO PRN (14:52)
[2021-08-04] MEDS ORDERED: GUAIFENESIN/CODEINE 5ML UCUP PO PRN (14:52)
--- NOTE | 2021-08-04 14:56 | P.HP ---
Certification for Inpatient Patient admitted to: Inpatient With expected LOS: >2 Midnights Patient will require the following post-hospital care: None Practitioner: I am a practitioner with admitting privileges, knowledge of patient current condition, hospital course, and medical plan of care. Services: Services provided to patient in accordance with Admission requirements found in Title 42 Section 412.3 of the Code of Federal Regulations Patient History Date of Service: 08/05/21 Reason for admission: SOB History of Present Illness: Patient is a 26-year-old female with no known past medical history presents with complaint of shortness of breath onset 3 days ago. Patient reported that she tested positive for COVID-19 infection 2 days ago. Patient reports associated signs and symptoms of fever, chills, diarrhea, dizziness, headache, weakness, chest tightness, diaphoresis, loss of appetite\smell and fatigue. Patient denies any other signs or symptoms. Symptoms are aggravated or relieved by nothing. Patient decided to present to the for medical evaluation. Allergies No Known Drug Allergies Allergy (Verified 08/04/21 20:37) Unknown Home Medications: Pnv 67/Iron Ps/Folate No.1/Dha [Vitafol Ultra Softgel] 1 cap PO DAILY 08/14/15 Tramadol HCl [Ultram] 50 mg PO Q6HR #10 tablet 06/08/18 - Past Medical/Surgical History Diabetic: No Past Medical History: Patient denies medical history -: vaginal delivery 07/2015 - Family History Father -: Hypertension, Diabetes Sister -: Lung disease - Social History Smoking Status: Never smoker Alcohol use: No CD- Drugs: No Caffeine use: No Place of Residence: Home Review of Systems General: Fever, Chills, Weakness, As per HPI Eyes: Unremarkable ENT: Unremarkable Respiratory: Cough, Shortness of Breath, SOB with Excertion Cardiovascular: Unremarkable Gastrointestinal: Unremarkable Musculoskeletal: Unremarkable Integumentary: Unremarkable Neurological: Unremarkable Lymphatics: Unremarkable Physical Examination - Physical Exam General: Alert, In no apparent distress, Oriented x3 HEENT: Atraumatic, PERRLA, Mucous membr. moist/pink, EOMI, Sclerae nonicteric Neck: Supple, 2+ carotid pulse no bruit, No LAD, Without JVD or thyroid abnormality Respiratory: Clear to auscultation bilaterally, Normal air movement Cardiovascular: Regular rate/rhythm, Normal S1 S2 Capillary refill: <2 Seconds Gastrointestinal: Normal bowel sounds, No tenderness Musculoskeletal: No tenderness Integumentary: No rashes, No breakdown Neurological: Normal gait, Normal speech, Normal tone, Normal affect Lymphatics: No axilla or inguinal lymphadenopathy External genitalia: Deferred Rectal: Deferred - Studies Laboratory Data (last 24 hrs) 08/04/21 11:55: Sodium 140, Potassium 4.1, BUN 9, Creatinine 0.76, Glucose 94, Total Bilirubin 0.4, AST 32, ALT 34, Alkaline Phosphatase 69 08/04/21 11:55: WBC 5.20, Hgb 14.4, Hct 41.5, Plt Count 166 Assessment and Plan - Plan --COVID-19 pneumonia. Patient placed on steroids, O2 therapy prn and oral supplements. Pulmonology consulted. Will await further recommendation from boiler control technician. --COVID-19 infection. Continue current treatment regimen. Continue contact and airborne precautions. --Headache. Tylenol as needed. --Tachycardia. Patient given IV bolus in the ER. HR trending down. Telemetry to monitor for any significant arrhythmia. --DVT prophylaxis with Lovenox sub. I have had discussion about advanced directives with the patient during this hospital admission. Addressed code status and goals of care. Spent more than 30 minutes. Case discussed withpatient and nurse. Case discussed withpatient and nurse. The following document was completed using voice recognition software. This can produce weigher alloy errors that can at times significantly distort words and phrases. Please interpret any aspect of the note that is nonsensical in light of this fact. Discharge Plan: Home Plan to discharge in: 48 Hours - Advance Directives Does patient have a Living Will: No Does patient have a Durable POA for Healthcare: No - Code Status/Comfort Care Code Status Assessed: Yes Code Status: Full Code Physician Review: Patient Assessed, Agree with Above Assessment and Plan Critical Care: No
[2021-08-04 16:24] VITALS: BMI 26.6
[2021-08-04 19:21] LABS: NT PRO-BNP < 5 pg/mL (<125)
[2021-08-04] MEDS: FAMOTIDINE 20 MG/2 ML VIAL IV SCH (20:37)
[2021-08-04] MEDS: METHYLPREDNISOLONE 40 MG INJ IV SCH (20:38)
[2021-08-04] MEDS ORDERED: MELATONIN 5 MG TABLET PO SCH (21:00)
[2021-08-04 22:03] LABS: Urine Bilirubin Negative (Negative); Urine Blood 3+ (Negative); Urine Color Yellow (Yellow); Urine Glucose Trace (Negative); Urine Protein Trace (Negative); Urine Specific Gravity 1.015 (1.005-1.030); Urine Urobilinogen 0.2 mg/dL (0.2-1.0); Urine pH 5.5 (5.0-7.0)
[2021-08-04 22:10] LABS: Urine Appearance HAZY (Clear); Urine Microscopic Reflex ORDER UMIC
[2021-08-04 22:19] LABS: Urine Bacteria <20 /HPF (<20); Urine RBC TNTC /HPF (NONE SEEN)
[2021-08-05 07:05] LABS: Absolute Lymphocytes (CBC) 0.9 K/uL (0.7-4.9); Basophils % 0.2 % (0-1.3); Hematocrit 43.4 % (36.0-45.0); MPV 8.9 fL (7.6-11.3); RBC Red Blood Cell Count 4.98 M/uL (3.86-4.86)
[2021-08-05 07:30] LABS: BUN Blood Urea Nitrogen 10 mg/dL (7-18); Bicarbonate 24 mmol/L (21-32); Ferritin 259.5 ng/mL (8-388); Glucose Level 130 mg/dL (74-106); HDL Cholesterol 31 mg/dL (40-60); LDL Cholesterol, Calculated 68 (<130); Potassium 3.7 mmol/L (3.5-5.1); Sodium Level 143 mmol/L (136-145); Troponin I < 0.02 ng/mL (0.0-0.045)
[2021-08-05] MEDS ORDERED: POTASSIUM 25 MEQ EFFERV TAB PO ONE (08:38)
[2021-08-05] MEDS ORDERED: ZINC SULFATE 220 MG CAP PO SCH (09:00)
[2021-08-05] MEDS ORDERED: ASCORBIC ACID 500 MG TABLET PO SCH (09:00)
[2021-08-05] MEDS ORDERED: ENOXAPARIN 40 MG/0.4 ML SQ SCH (09:00)
[2021-08-05] MEDS ORDERED: THIAMINE HCL 100 MG TABLET PO SCH (09:00)
[2021-08-05] MEDS ORDERED: VITAMIN D 5,000 UNIT CAP PO SCH (09:00)
[2021-08-05] MEDS: METHYLPREDNISOLONE 40 MG INJ IV SCH (09:38)
[2021-08-05] MEDS: FAMOTIDINE 20 MG/2 ML VIAL IV SCH (09:39)
[2021-08-05 10:54] VITALS: O2SAT 93
[2021-08-05 12:46] VITALS: BP 105/61; TEMP 98.1
--- NOTE | 2021-08-05 12:53 | P.CNS ---
Date of Consult: 08/05/21 Reason for Consult: COVID penumonia Chief Complaint: SOB History of Present Illness: AGe 26 AW COVID penumoniaworse past 3 days/ Better today c/o cough Allergies No Known Drug Allergies Allergy (Verified 08/04/21 20:37) Unknown Home Medications: Pnv 67/Iron Ps/Folate No.1/Dha [Vitafol Ultra Softgel] 1 cap PO DAILY 08/14/15 Tramadol HCl [Ultram] 50 mg PO Q6HR #10 tablet 06/08/18 - Past Medical/Surgical History Diabetic: No -: vaginal delivery 07/2015 - Family History Father Medical History: Hypertension, Diabetes Sister Medical History: Lung disease - Social History Smoking Status: Never smoker Alcohol use: No CD- Drugs: No Caffeine use: No Place of Residence: Home Review of Systems General: Weakness Respiratory: Cough, Shortness of Breath Physical Examination Temp Pulse Resp BP Pulse Ox 98.1 F 75 20 105/61 96 08/05/21 12:00 08/05/21 12:00 08/05/21 12:00 08/05/21 12:00 08/05/21 12:00 General: Alert, Oriented x3, Mild distress - Problems (1) Pneumonia due to COVID-19 virus Current Visit: Yes Status: Acute Plan: age [age] AW mild COVID penumonia/ Stable to go home. Ambulate prior to discharge/ CW pred and aspirin/ VS stabel/LAbs and CT reviewed
[2021-08-05] MEDS ORDERED: FAMOTIDINE 20 MG TAB PO SCH (21:00)
--- NOTE | 2021-08-05 21:54 | P.DS ---
Admission Date: 08/04/21 Discharge Date: 08/05/21 Disposition: ROUTINE DISCHARGE Discharge Condition: GOOD Reason for Admission: SOB Consultations: Pulmonology - Dr. Gu Procedures: CXR (08/04): FINDINGS: Mild right and [id number] left pulmonary opacities. The heart is normal size IMPRESSION: Mild right and lpap-he-ircuygwk left pulmonary opacities probably pneumonia CTA Chest (08/04): FINDINGS: A pulmonary embolus is not seen. A thoracic aortic aneurysm is not noted. A pleural effusion is not seen. A pericardial effusion is not seen. Mild right and [id number]-wq-[id number] left ground-glass opacities within the lungs IMPRESSION: Negative for a pulmonary embolism. Mild to moderate ground-glass opacities within the lungs probably Covid pneumonia Problem List Acute hypoxemic respiratory failure secondary to COVID-19 pneumonia [place]che Brief History of Present Illness: 26-year-old female with no known past medical history presents with complaint of shortness of breath onset 3 days ago. Patient reported that she tested positive for COVID-19 infection 2 days ago. Patient reports associated signs and symptoms of fever, chills, diarrhea, dizziness, headache, weakness, chest tightness, diaphoresis, loss of appetite\smell and fatigue. Patient denies any other signs or symptoms. Symptoms are aggravated or relieved by nothing. Patient decided to present to the for medical evaluation. Hospital Course: CTA negative for PE. Patient was treated with steroids, vitamin supplementation, and oxygen supplementation. She had improvement in her symptoms and was feeling much better the following day. She was noted to be hypoxic to 88% on room air and recovered quickly. She was set up with home O2 and discharged home to continue treatment. On arrival to ED she was tachypneic and tachycardic, this resolved quickly with oxygen supplementation and IV fluid. Follow up with Dr. Gu in ~1 week. Vital Signs/Physical Exam: Temp Pulse Resp BP Pulse Ox 98.1 F 75 20 105/61 96 08/05/21 12:00 08/05/21 12:00 08/05/21 12:00 08/05/21 12:08/05/21 12:00 General: Alert, In no apparent distress, Oriented x3 HEENT: Sclerae nonicteric Neck: Supple, No LAD Respiratory: Diminished, Other (nonlabored respirations on 2L NC) Cardiovascular: No edema, Regular rate/rhythm, No murmurs Gastrointestinal: Soft and benign, Non-distended, No tenderness Musculoskeletal: No tenderness Integumentary: No rashes, No significant lesion Neurological: Normal speech, Normal affect Laboratory Data at Discharge: WBC 3.30 K/uL (4.3-10.9) L D 08/05/21 06:28 Hgb 14.9 g/dL (12.0-15.0) 08/05/21 06:28 Hct 43.4 % (36.0-45.0) 08/05/21 06:28 Plt Count 200 K/uL (152-406) D 08/05/21 06:28 Sodium 143 mmol/L (136-145) 08/05/21 06:28 Potassium 3.7 mmol/L (3.5-5.1) 08/05/21 06:28 BUN 10 mg/dL (7-18) 08/05/21 06:28 Creatinine 0.63 mg/dL (0.55-1.3) 08/05/21 06:28 Glucose 130 mg/dL (74-106) H 08/05/21 06:28 Total Bilirubin 0.4 mg/dL (0.2-1.0) 08/04/21 11:55 AST 32 U/L (15-37) 08/04/21 11:55 ALT 34 U/L (12-78) 08/04/21 11:55 Alkaline Phosphatase 69 U/L (45-117) 08/04/21 11:55 Troponin I < 0.02 ng/mL (0.0-0.045) 08/05/21 06:28 Triglycerides 59 mg/dL (<150) 08/05/21 06:28 Cholesterol 111 mg/dL (<200) 08/05/21 06:28 HDL Cholesterol 31 mg/dL (40-60) L 08/05/21 06:28 Cholesterol/HDL Ratio 3.58 08/05/21 06:28 Home Medications: Pnv 67/Iron Ps/Folate No.1/Dha [Vitafol Ultra Softgel] 1 cap PO DAILY 08/14/15 Tramadol HCl [Ultram] 50 mg PO Q6HR #10 tablet 06/08/18 Aspirin [Aspirin EC 81 MG] 81 mg PO DAILY 30 Days #30 tablet. 08/05/21 Benzonatate [Tessalon Perle] 100 mg PO TID 7 Days #21 cap 08/05/21 Dexamethasone [Decadron] 6 mg PO DAILY 10 Days #10 tablet 08/05/21 New Medications: Aspirin [Aspirin EC 81 MG] 81 mg PO DAILY 30 Days #30 tablet. Dexamethasone [Decadron] 6 mg PO DAILY 10 Days #10 tablet Benzonatate [Tessalon Perle] 100 mg PO TID 7 Days #21 cap Physician Discharge Instructions: You were found to have COVID-19 pneumonia. You had improvement with steroids, vitamin supplementation, and oxygen supplementation. You are discharged home to continue with this treatment. Recommend taking 81mg aspirin daily for 30 days. Follow up with Dr. Gu ([employer] Attorney) in ~1 week. Call his office to schedule the appointment. Recommend quarantining for an additional 7 days. Diet: Regular Activity: Ad noelle Followup: Gulshan Gu MD [ACTIVE - CAN ADMIT] - 1 Week (campus rep- call to schedule an appointment) NONE,NONE [Primary Care Provider] - Time spent managing pt's care (in minutes): 45
== END 2021-08-05 15:10 | disposition home or self-care (01) | DRG 177 ==
LOC: ER 11:17 → ERHOLD 14:42 → 4TH 19:42
PROVIDERS: ADMIT Hospitalist; ATTEND Hospitalist
DX: U07.1 COVID-19 (principal); J12.82 Pneumonia due to coronavirus disease 2019; J96.01 Acute respiratory failure with hypoxia; R51.9 Headache, unspecified; R00.0 Tachycardia, unspecified
CPT/HCPCS: 36415; 71045; 71275; 80048; 80053; 80061; 81003; 81015; 81025; 82728; 83880; 84439; 84443; 84484; 85025; 85379; 86140; 87040; 93005; 94010; 96374; 96375; 99285; J0456; J0696; J1650; J2405; J2920; J2930; J7030; J7040; J7512; Q9967